=== PATIENT | female | born 1990 | race Asian ===

== ENCOUNTER 2021-02-13 10:44 | Emergency (ER) | payer OTHER ==
[~2021-02-13] VITALS: Ht 160 cm; Wt 59.0 kg
[2021-02-13 10:50] VITALS: BP 137/68
--- NOTE | 2021-02-13 10:50 | NUR ---
pt bib amr to er bed 4
--- NOTE | 2021-02-13 11:00 | NUR ---
30 y/o F BIB self from home c/o nausea, vomiting since 0900 this morning. Patient A&Ox4, ambulatory, states she had a fall yesterday in which she took Tylenol for. Pt states drinking alcohol last night to help with pain. Pt states this morning feeling nausea and states 4 episodes of vomiting and 1 episode of diarrhea. States out of insulin pump medication for 1 month d/t insurance reasons. States chills, body pain 8/10, shivers. Denies chest pain, dysuria. States sick household "everyone sick with a cold." Pt placed onto [employer]. Bed locked in lowest position, side rails x1. PMH: DM1 NKDA Meds: Insulin basaglar
[2021-02-13] MEDS ORDERED: ONDANSETRON 4 MG/2 ML VIAL IVP ONE (11:20)
--- NOTE | 2021-02-13 11:23 | NUR ---
Pt ambulated to restroom for urine sample
[2021-02-13] MEDS ORDERED: diphenhydrAMINE 50 MG/ML VIAL IVP ONE (11:25)
[2021-02-13] MEDS ORDERED: HALOPERIDOL IM 5 MG/ML VIAL IVP ONE (11:25)
[2021-02-13] MEDS ORDERED: NACL 0.9% 1,000 ML IV SCH (11:25)
--- NOTE | 2021-02-13 11:47 | NUR ---
Lab at bedside
--- NOTE | 2021-02-13 11:47 | NUR ---
NOVEL to liyah [place]
[2021-02-13 12:13] LABS: BASOPHILS % (AUTO) 0.2 % (0.0-2.0); EOSINOPHILS # (AUTO) 0.1 K/uL (0-0.4); EOSINOPHILS % (AUTO) 1.5 % (0.0-4.0); HEMATOCRIT 37.3 % (36-48); HEMOGLOBIN 12.6 g/dL (12.0-16.0); LYMPHOCYTES # (AUTO) 1.8 K/uL (2.5-16.5); LYMPHOCYTES % (AUTO) 17.9 % (20.5-51.1); MEAN CORPUSCULAR HEMOGLOBIN 30 pg (27-31); MEAN CORPUSCULAR HGB CONC 34 g/dL (33-37); MEAN CORPUSCULAR VOLUME 88.3 fL (80-94); MONOCYTES # (AUTO) 0.5 K/uL (0.8-1.0); NEUTROPHILS # (AUTO) 7.5 K/uL (1.8-7.7); NEUTROPHILS % (AUTO) 75.4 % (42.2-75.2); PLATELET COUNT (AUTO) 256 K/uL (140-450); RED BLOOD CELL COUNT(AUTO) 4.23 MIL/uL (4.20-5.40); RED CELL DISTRIBUTION WIDTH 13.2 % (11.6-13.7); WHITE BLOOD COUNT (AUTO) 9.9 K/uL (4.8-10.8)
--- NOTE | 2021-02-13 12:17 | NUR ---
Pt with both eyes closed awaken and states + relief to nausea. Additional emesis bags provided. 2 additional blankets provided per pt request. Pt on site monitor; SpO2 99% on room air. RR 16. Bed locked in lowest position, side rails x 1, call light in reach.
[2021-02-13 12:34] LABS: ANION GAP 13.6 (8-16); POTASSIUM 3.6 mmol/L (3.5-5.1); TOTAL BILIRUBIN 0.4 mg/dL (0.0-1.0)
--- NOTE | 2021-02-13 12:39 | NUR ---
Dr. Cabral is reevaluating pt at bedside. Danny () at bedside
[2021-02-13] MEDS ORDERED: NACL 0.9% 1,000 ML IV ONE (12:45)
[2021-02-13 12:51] LABS: BLOOD, URINE NEGATIVE (NEGATIVE); UGLUCOSE 3+ (NEGATIVE)
[2021-02-13 12:52] LABS: BILIRUBIN,URINE NEGATIVE (NEGATIVE); PH,URINE 8.5 (5.0-9.0)
[2021-02-13 12:53] LABS: APPEARANCE,URINE CLEAR (CLEAR); COLOR,URINE YELLOW (YELLOW); LEUKOCYTE ESTERASE ,URINE NEGATIVE (NEGATIVE); NITRITE, URINE NEGATIVE (NEGATIVE)
--- NOTE | 2021-02-13 13:34 | NUR ---
Patient resting with both eyes closed in semi-fowlers position. laboratory monitor in place. VSS; respirations even/unlabored. No emesis noted in bag. Bed locked in lowest position, side rails x 1, call light in reach.
[2021-02-13 15:12] VITALS: BP 121/81
--- NOTE | 2021-02-13 15:15 | NUR ---
Pt reports "I feel better, I'm still tired and ready to go home." Dr. Cabral made aware of pt passing PO challenge. Denies nausea at this time.
--- NOTE | 2021-02-13 15:21 | NUR ---
Patient discharged with v/s stable. Written and verbal after care instructions given and explained. Patient verbalized understanding. Ambulatory with steady gait. All questions addressed prior to discharge. Advised to follow up with PMD.
== END 2021-02-13 15:21 | disposition home or self-care (01) ==
LOC: MED 10:44
DX: R11.2 Nausea with vomiting, unspecified (principal); Z20.822 Contact with and (suspected) exposure to COVID-19; E10.9 Type 1 diabetes mellitus without complications; F12.90 Cannabis use, unspecified, uncomplicated
CPT/HCPCS: 80053; 81003; 81025; 83690; 85025; 96361; 96374; 96375; 99284; J1200; J1630; J2405; J7030; U0003

== ENCOUNTER 2021-02-14 11:49 | Emergency (ER) | payer OTHER ==
--- NOTE | 2021-02-14 11:58 | NUR ---
ATTEMPTED TO CALL PT IN LOBBY/OUTSIDE, NO ANSWER.
--- NOTE | 2021-02-14 12:07 | NUR ---
2ND ATTEMPT AT CALLING PT IN LOBBY/OUTSIDE, NO ANSWER.
--- NOTE | 2021-02-14 12:12 | NUR ---
FINAL ATTEMPT, CALLED PT VIA PHONE. PT STATED "I JUST WANT TO LEAVE, ILL RETURN IF I GET WORSE".
--- NOTE | 2021-02-14 12:12 | NUR ---
PATIENT LEFT WITHOUT BEING SEEN BY DR. ZAMBRANO. NO FURTHER CARE PROVIDED FOR PATIENT.
== END 2021-02-14 12:12 | disposition left against medical advice (07) ==
LOC: MED 11:49
DX: Z53.21 Procedure and treatment not carried out due to patient leaving prior to being seen by health care provider (principal)